=== PATIENT | female | born 1980 | race Two or more races ===

== ENCOUNTER 2023-08-06 13:03 | Emergency (ER) | payer MEDICAID, OTHER ==
[~2023-08-06] VITALS: Ht 149.9 cm; Wt 42.7 kg
[2023-08-06 13:32] VITALS: BP 125/83; PULSE 97; RESP 20; O2SAT 97
== END 2023-08-06 16:34 | disposition left against medical advice (07) ==
LOC: ER 13:03
DX: M79.674 Pain in right toe(s) (principal); Z53.21 Procedure and treatment not carried out due to patient leaving prior to being seen by health care provider